=== PATIENT | male | born 1960 | race African-American/Black ===

== ENCOUNTER 2017-08-27 09:47 | Emergency (ER) | payer MEDICAID ==
[~2017-08-27] VITALS: Ht 190.5 cm; Wt 89.8 kg
[~2017-08-27 09:47] MED LIST: ABILIFY2 MG ORAL; DEPAKOTE250 MG PO; IBUPROFEN600 MG ORAL; KEFLEX500 MG ORAL; NKM; SALICYLIC ACID TP; ZOLOFT25 MG ORAL
[2017-08-27 09:54] VITALS: BP 125/73
[2017-08-27] MEDS ORDERED: ROBAXIN-750750 MG PO (10:33)
[2017-08-27] MEDS ORDERED: IBUPROFEN600 MG ORAL (10:33)
[2017-08-27 10:50] VITALS: BP 124/76
--- NOTE | 2017-08-28 06:48 | Emergency Room Report ---
History of Present Illness General Chief Complaint: Upper Extremity Injury Source: Patient, Medical Record Present Illness HPI 56-year-old male presents ED for evaluation. Patient complaining of pain to his left upper back times one week. Started after lifting in the gym. Pain is dull, 8 out of 10, radiating to his left shoulder. Denies chest pain or shortness of breath. States pain is worse with twisting and bending and raising his arms above his head. Denies any other injuries. No other aggravating relieving factors. Denies any other associated symptoms Allergies: Coded Allergies: PENICILLINS (Verified Allergy, 04/02/13) Uncoded Allergies: pencillins (Allergy, Severe, 04/02/13) swelling Patient History Past Medical History: other - Hep C Past Surgical History: none Pertinent Family History: none Social History: Denies: smoking, alcohol use, drug use Immunizations: UTD Reviewed Nursing Documentation: PMH: Agreed; PSxH: Agreed Nursing Documentation-PMH Past Medical History: No History, Except For Hx Gastrointestinal Problems: Yes - Hep C Review of Systems All Other Systems: negative except mentioned in HPI Physical Exam Vital Signs Date Time Temp Pulse Resp B/P (MAP) Pulse Ox O2 Delivery O2 Flow Rate FiO2 08/27/17 09:54 97.5 69 18 125/73 100 Room Air 97.5 Sp02 EP Interpretation: reviewed, normal General Appearance: no apparent distress, alert, GCS 15, non-toxic Head: normocephalic, atraumatic Eyes: bilateral eye normal inspection, bilateral eye PERRL ENT: hearing grossly normal, normal pharynx, no angioedema, normal voice Neck: full range of motion, supple, no meningismus, supple/symm/no masses Respiratory: chest non-tender, lungs clear, normal breath sounds, speaking full sentences Cardiovascular #1: regular rate, rhythm, no edema Cardiovascular #2: 2+ carotid (R), 2+ carotid (L), 2+ radial (R), 2+ radial (L) , 2+ dorsalis pedis (R), 2+ dorsalis pedis (L) Gastrointestinal: normal bowel sounds, non tender, soft, non-distended, no guarding, no rebound Rectal: deferred Genitourinary: normal inspection, no CVA tenderness Musculoskeletal: gait/station normal, normal range of motion, non-tender, other - TTP under L shoulder blade. no bruising/deformity Neurologic: alert, oriented x3, responsive, motor strength/tone normal, sensory intact, speech normal Psychiatric: judgement/insight normal, memory normal, mood/affect normal, no suicidal/homicidal ideation Reflexes: 3+ bicep (R), 3+ bicep (L), 3+ tricep (R), 3+ tricep (L), 3+ knee (R) , 3+ knee (L) Skin: normal color, no rash, warm/dry, well hydrated Lymphatic: no adenopathy Medical Decision Making Diagnostic Impression: Primary Impression: Muscle strain of left scapular region Qualified Codes: S46.912A - Strain of unspecified muscle, fascia and tendon at shoulder and upper arm level, left arm, initial encounter ER Course Hospital Course 56-year-old male presents to ED complaining of L upper back pain Differential diagnoses include: Fracture, dislocation, sprain, contusion, bursitis Clinical course Patient placed on stretcher. After initial history, physical exam reveals an middle-aged male in no acute distress. There is some tenderness just below the left scapula. No bruising deformity. Full range of motion in the left shoulder. No evidence of rotator cuff injury. No nuchal rigidity. No cervical spine tenderness. Pain is consistent with muscle strain Patient is very fit, active patient. My suspicion for cardiac pain is low given no risk factors. Recommend analgesia, muscle relaxers. Heating pad. I will provide referral to orthopedics Diagnosis - muscle strain of left scapular region stable and discharged to home with prescription for motrin, robaxin. Followup with PMD. Return to ED if symptoms recur or worsen Last Vital Signs Date Time Temp Pulse Resp B/P (MAP) Pulse Ox O2 Delivery O2 Flow Rate FiO2 08/27/17 10:50 97.8 60 18 124/76 99 Room Air Status: improved Disposition: HOME, SELF-CARE Condition: Stable Scripts Methocarbamol* (ROBAXIN-750*) 750 Mg Tablet 750 MG PO TID, #21 TAB 0 Refills Prov: Hari Brown MD 08/27/17 Ibuprofen* (MOTRIN*) 600 Mg Tablet 600 MG ORAL Q8H PRN for For Pain, #30 TAB 0 Refills Prov: Hari Brown MD 08/27/17 Referrals: Dimitris Benitez MD [facility],REFERRING (PCP) Patient Instructions: Muscle Strain, [id number] Hari Brown MD August 28, 2017 06:48
== END 2017-08-27 10:50 | disposition home or self-care (01) ==
LOC: EMR 10:10
DX: S46.912A Strain of unspecified muscle, fascia and tendon at shoulder and upper arm level, left arm, initial encounter (principal); X50.0XXA Overexertion from strenuous movement or load, initial encounter; Y92.39 Other specified sports and athletic area as the place of occurrence of the external cause; Z88.0 Allergy status to penicillin
CPT/HCPCS: 99284